=== PATIENT | female | born 1980 | race Caucasian/White ===

== ENCOUNTER → 2017-12-10 12:50 | Outpatient (POV) | payer MEDICAID, SELFPAY ==
[2017-12-10 13:04] VITALS: BP 125/81; PULSE 84; RESP 16; TEMP 36.3; O2SAT 98; BMI 29.0
--- NOTE | 2017-12-10 13:06 | HMH.PAINSOAP ---
[facility] Pain Management SOAP Note Subjective:: This patient is a pleasant 37-year-old white female who we are seeing after bilateral SI joint injections under fluoroscopy. She had good relief of her pain symptoms approximately 80-90% for 1 week. Her pain is starting to return. I do believe that she would benefit from repeat bilateral SI joint injections. She is also having some increasing neck pain. She has had previous neck surgery. She has not had any recent imaging. Pain does radiate into both shoulders. We will order a new cervical MRI to discern pathology. Objective:: Alert and oriented ?3 in no acute distress. Patient does have an antalgic gait. There is tenderness over both SI joints. Patient does have a positive Vielka's test bilaterally. Decreased range of motion of the cervical spine. Motor strength of the upper extremities is 5/5. There is no gross sensory deficit. Assessment:: Bilateral sacroiliitis. Degenerative disc disease of the cervical spine previous cervical laminectomy syndrome with cervical radiculopathy symptoms Plan:: We will plan on repeat bilateral SI joint injections under fluoroscopy. We will also order her a new cervical MRI to discern change in pathology since her previous surgery and increasing neck pain with cervical radicular symptoms.
== END ==
PROVIDERS: Family Provider Internal Medicine; PCP Internal Medicine; Visit Provider Anesthesiology
DX: M50.10 Cervical disc disorder with radiculopathy, unspecified cervical region (principal); M46.1 Sacroiliitis, not elsewhere classified
CPT/HCPCS: 99212

== ENCOUNTER → 2017-12-17 13:21 | Outpatient (CLI) | payer MEDICAID, SELFPAY ==
--- NOTE | 2017-12-17 13:25 | MR_ITS ---
MR cervical spine wo con, MR 3-d myelogram/MRCP Ordering Physician: Paresh Horan MD Patient Age: 37 years: Female HISTORY: ITS.REASON: NECK PAIN TECHNIQUE: No contrast utilized Sagittal STIR, T1, T2, axial T1 & T2. On 1.5T Siemens wide bore MRI. 3-D MR myelogram image set obtained was performed on MRI workstation. Additional sagittal thin section T2 weighted dataset obtained from this latter acquisition as well (---76 CPT). COMPARISON :None listed in PACS FINDINGS Post surgical changes with previous anterior fusion C3/4. At the anterior metallic plate and anterior screws at this level yield field distortion artifact. Cranial cervical junction is satisfactory. C2/3 disc intact. C3/4 level unremarkable C4/5 scant central central protrusion with trace spondylosis, trace posterior ridging. Minor disc/ossified features here only slightly flatten the anterior aspect of thecal sac. Central canal measures 9 mm AP reflecting borderline canal stenosis C5-C6 disc intact C6/7. Disc space narrowing at this level.. A disc protrusion midline and to the right, most evident right paracentral. This does indent the thecal sac to the right & just abuts is slightly flattened anterior right aspect of cervical cord.-Right paracentral. Although on axial images would question a prior lateral right disc protrusion, do not see any significant foraminal encroachment on sagittal views to further support such. . C7/T1 disc intact T1/T2 and T2/T3 disc intact. 3-D MR myelogram image set shows a slight anterior indentation upon the anterior thecal sac most evident to the right Cervical cord normal caliber. Upper normal signal cervical cord on STIR images most likely pulsation artifact feature. At anterior C5 vertebral body a nearly 10 mm round area Increased signal which is compatible with benign hemangioma. Increased signal on T1-weighted images. At Central C6 vertebral body Similar smaller 4 mm area likely hemangioma central . IMPRESSION: 1. C6/7.. Rightward disc protrusion, which slightly effaces the right aspect cervical cord... 2. C4/5. Scant central disc protrusion. Disc/osteophytes only very slightly indenting anterior aspect of thecal sac. Borderline central canal stenosis this level 3. Previous anterior discectomy and anterior fusion at C3/4 these levels appear intact. 4 left-sided pain no leftward disc protrusion or foraminal encroachmentq otherwise evident
== END ==
PROVIDERS: Family Provider Internal Medicine; PCP Internal Medicine; Visit Provider Anesthesiology
DX: M54.2 Cervicalgia (principal)
CPT/HCPCS: 72141; 76376

== ENCOUNTER → 2018-03-11 10:11 | Outpatient (POV) | payer MEDICAID, SELFPAY ==
[2018-03-11 10:25] VITALS: BP 121/70; PULSE 88; RESP 20; TEMP 36.7; O2SAT 98; BMI 27.4
--- NOTE | 2018-03-11 10:59 | HMH.PAINSOAP ---
[facility] Pain Management SOAP Note Subjective:: Patient is a pleasant 37-year-old white female who presents today for follow-up after insurance denial bilateral SI joint injections. Patient states that she typically gets good pain relief approximately 80-90% after her injections however her insurance denied at this time. Patient also had cervical MRI. Patient's cervical MRI does show disc protrusions at C6-C7, previous anterior discectomy, canal stenosis, C4-C5 central disc protrusion. Patient states that she has neck pain that radiates down into both arms. She states the right is typically worse. Patient states she has numbness tingling as well. Patient rates her pain a 6 out of 10 today. Patient is currently on gabapentin and clonazepam from her neurologist. Patient is asking me today if there is medication that she can take to help with the pain. Patient and I had a long discussion about her seizures and our inability to prescribe narcotics or anything else that may lower her seizure threshold. Patient is in a discussed with her neurologist options. We will set up the patient for an epidural steroid injection. ROS General: no recent weight change, no fever, no sleep disturbances Respiratory: no cough, no shortness of air, no recurring pulmonary infections Cardiovascular/Peripheral Vascular: No chest pain, No palpitations, no edema, no shortness of breath. Gastrointestinal: no incontinence, normal bowel movements reported Genitourinary: no incontinence Musculoskeletal: Neck pain, bilateral arm pain Psychiatric: normal mood/ affect Neurological: [denies weakness in extremities], [denies balance issues] Objective:: Physical Exam General: Alert and oriented x3, no acute distress, pleasant and cooperative, [on room air] Lungs: Resps E/U, Symmetrical chest expansion, Eyes: PERRL Musculoskeletal: Flexion and extension of cervical spine somewhat guarded secondary to pain, deep tendon reflexes normal, strength in upper and lower extremities [5/5], normal gait noted Neurological: speech clear, interventional radiology tech equal, no gross sensory deficits Assessment:: Bilateral sacroiliitis, degenerative disc disease of the cervical spine, cervical laminectomy, cervical radiculopathy. Plan:: Patient and I discussed potentially seeing us neurosurgeon in regards to her new MRI. Patient would like to start with epidural injections. I believe that this would be beneficial. Patient does home stretching. Patient and I had a long discussion about medications and we discussed not providing any narcotic medications for the patient. Patient is also has a seizure disorder which limits our medications we can use. Patient has been a talk to her neurologist about this. Patient's tried and failed physical therapy, anti-inflammatories, other medications. Patient has done well with injective therapy in the past. This note was dictated using voice recognition software and may contain errors or omissions
--- NOTE | 2018-03-11 11:02 | P.CONS_ITS ---
[facility] Pain Management SOAP Note Subjective:: Patient is a pleasant 37-year-old white female who presents today for follow-up after insurance denial bilateral SI joint injections. Patient states that she typically gets good pain relief approximately 80-90% after her injections however her insurance denied at this time. Patient also had cervical MRI. Patient's cervical MRI does show disc protrusions at C6-C7, previous anterior discectomy, canal stenosis, C4-C5 central disc protrusion. Patient states that she has neck pain that radiates down into both arms. She states the right is typically worse. Patient states she has numbness tingling as well. Patient rates her pain a 6 out of 10 today. Patient is currently on gabapentin and clonazepam from her neurologist. Patient is asking me today if there is medication that she can take to help with the pain. Patient and I had a long discussion about her seizures and our inability to prescribe narcotics or anything else that may lower her seizure threshold. Patient is in a discussed with her neurologist options. We will set up the patient for an epidural steroid injection. ROS General: no recent weight change, no fever, no sleep disturbances Respiratory: no cough, no shortness of air, no recurring pulmonary infections Cardiovascular/Peripheral Vascular: No chest pain, No palpitations, no edema, no shortness of breath. Gastrointestinal: no incontinence, normal bowel movements reported Genitourinary: no incontinence Musculoskeletal: Neck pain, bilateral arm pain Psychiatric: normal mood/ affect Neurological: [denies weakness in extremities], [denies balance issues] Objective:: Physical Exam General: Alert and oriented x3, no acute distress, pleasant and cooperative, [ on room air] Lungs: Resps E/U, Symmetrical chest expansion, Eyes: PERRL Musculoskeletal: Flexion and extension of cervical spine somewhat guarded secondary to pain, deep tendon reflexes normal, strength in upper and lower extremities [5/5], normal gait noted Neurological: speech clear, lens edger equal, no gross sensory deficits Assessment:: Bilateral sacroiliitis, degenerative disc disease of the cervical spine, cervical laminectomy, cervical radiculopathy. Plan:: Patient and I discussed potentially seeing us neurosurgeon in regards to her new MRI. Patient would like to start with epidural injections. I believe that this would be beneficial. Patient does home stretching. Patient and I had a long discussion about medications and we discussed not providing any narcotic medications for the patient. Patient is also has a seizure disorder which limits our medications we can use. Patient has been a talk to her neurologist about this. Patient's tried and failed physical therapy, anti-inflammatories, other medications. Patient has done well with injective therapy in the past. This note was dictated using voice recognition software and may contain errors or omissions
== END ==
PROVIDERS: Family Provider Internal Medicine; PCP Internal Medicine; Visit Provider Clinical Nurse Specialist Family Health
DX: M46.1 Sacroiliitis, not elsewhere classified (principal); M54.12 Radiculopathy, cervical region
CPT/HCPCS: 99212

== ENCOUNTER → 2018-05-20 10:30 | Outpatient (POV) | payer MEDICAID, SELFPAY ==
[2018-05-20 10:58] VITALS: BP 111/66; PULSE 89; RESP 18; O2SAT 98; BMI 28.4
--- NOTE | 2018-05-20 12:24 | HMH.PAINSOAP ---
[facility] Pain Management SOAP Note Subjective:: Vision is a 37-year-old white female we are treating for neck pain. Patient has a new MRI showing disc protrusion at C6-C7 with a previous anterior discectomy and canal stenosis. Patient had surgery by Dr. Fernandez discussed returning with the new MRI to Dr. Fernandez if injections did not work. Patient is agreeable to this. Patient has had bilateral SI joint injection in the past with good relief. Patient would like to have her SI joints injected again. Patient states when she does have these injections she has 80-90% relief for several months. Patient does home stretching exercises. Patient's tried and failed physical therapy, and clitoris, other medications. Patient also has a seizure disorder limiting what medications we can use. Patient rates her neck pain as 7 out of 10 today. She states it worsened after her injections. ROS General: no recent weight change, no fever, no sleep disturbances Respiratory: no cough, no shortness of air, no recurring pulmonary infections Cardiovascular/Peripheral Vascular: No chest pain, No palpitations, no edema, no shortness of breath. Gastrointestinal: no incontinence, normal bowel movements reported Genitourinary: no incontinence Musculoskeletal: Neck pain, bilateral SI joint pain Psychiatric: normal mood/ affect Neurological: [denies weakness in extremities], [denies balance issues] Objective:: Physical Exam General: Alert and oriented x3, no acute distress, pleasant and cooperative, [on room air] Lungs: Resps E/U, Symmetrical chest expansion, [CTA bilateral] Eyes: PERRL Musculoskeletal: Flexion and extension of cervical spine somewhat guarded secondary to pain, deep tendon reflexes normal, strength in upper and lower extremities [5/5], antalgic gait noted, 3 point tenderness over bilateral SI joints, positive Vielka's test bilaterally Neurological: speech clear, rn homecare equal, no gross sensory deficits Assessment:: Degenerative disc disease of the cervical spine, cervical postlaminectomy syndrome, bilateral sacroiliitis Plan:: We will send the patient back to Dr. Fernandez for consultation in regards to her updated imaging of her cervical spine. We will also schedule bilateral SI joint injections for the patient. Given the efficacy of these in the past I believe it would be beneficial. I will follow-up with this patient after her consultation or her injections. This note was dictated using voice recognition software and may contain errors or omissions
--- NOTE | 2018-05-20 12:29 | P.CONS_ITS ---
[facility] Pain Management SOAP Note Subjective:: Vision is a 37-year-old white female we are treating for neck pain. Patient has a new MRI showing disc protrusion at C6-C7 with a previous anterior discectomy and canal stenosis. Patient had surgery by Dr. Fernandez discussed returning with the new MRI to Dr. Fernandez if injections did not work. Patient is agreeable to this. Patient has had bilateral SI joint injection in the past with good relief. Patient would like to have her SI joints injected again. Patient states when she does have these injections she has 80-90% relief for several months. Patient does home stretching exercises. Patient's tried and failed physical therapy, and clitoris, other medications. Patient also has a seizure disorder limiting what medications we can use. Patient rates her neck pain as 7 out of 10 today. She states it worsened after her injections. ROS General: no recent weight change, no fever, no sleep disturbances Respiratory: no cough, no shortness of air, no recurring pulmonary infections Cardiovascular/Peripheral Vascular: No chest pain, No palpitations, no edema, no shortness of breath. Gastrointestinal: no incontinence, normal bowel movements reported Genitourinary: no incontinence Musculoskeletal: Neck pain, bilateral SI joint pain Psychiatric: normal mood/ affect Neurological: [denies weakness in extremities], [denies balance issues] Objective:: Physical Exam General: Alert and oriented x3, no acute distress, pleasant and cooperative, [ on room air] Lungs: Resps E/U, Symmetrical chest expansion, [CTA bilateral] Eyes: PERRL Musculoskeletal: Flexion and extension of cervical spine somewhat guarded secondary to pain, deep tendon reflexes normal, strength in upper and lower extremities [5/5], antalgic gait noted, 3 point tenderness over bilateral SI joints, positive Vielka's test bilaterally Neurological: speech clear, delinquent account clerk equal, no gross sensory deficits Assessment:: Degenerative disc disease of the cervical spine, cervical postlaminectomy syndrome, bilateral sacroiliitis Plan:: We will send the patient back to Dr. Fernandez for consultation in regards to her updated imaging of her cervical spine. We will also schedule bilateral SI joint injections for the patient. Given the efficacy of these in the past I believe it would be beneficial. I will follow-up with this patient after her consultation or her injections. This note was dictated using voice recognition software and may contain errors or omissions
== END ==
PROVIDERS: Family Provider Internal Medicine; PCP Internal Medicine; Visit Provider Clinical Nurse Specialist Family Health
DX: M50.30 Other cervical disc degeneration, unspecified cervical region (principal); M46.1 Sacroiliitis, not elsewhere classified
CPT/HCPCS: 99212